=== PATIENT | female | born 1980 | race Caucasian/White ===

== ENCOUNTER 2019-06-24 17:10 | Emergency (ER) | payer OTHER ==
[~2019-06-24] VITALS: Ht 149.9 cm; Wt 63.0 kg
[2019-06-24] MEDS ORDERED: PEPCID AC20 MG (18:11)
== END 2019-06-24 19:30 | disposition home or self-care (01) ==
LOC: ER 17:10
DX: M54.2 Cervicalgia (principal)

== ENCOUNTER 2020-01-05 00:37 | Emergency (ER) | payer OTHER ==
[~2020-01-05] VITALS: Ht 154.9 cm; Wt 59.0 kg
[~2020-01-05 00:37] MED LIST: PEPCID AC20 MG
[2020-01-05] MEDS ORDERED: KEFLEX500 MG PO (07:46)
[2020-01-05] MEDS ORDERED: LEVSIN/SL0.125 MG SL ×2 (07:46→07:47)
== END 2020-01-05 07:54 | disposition home or self-care (01) ==
LOC: ER 00:37
DX: N39.0 Urinary tract infection, site not specified (principal); K80.20 Calculus of gallbladder without cholecystitis without obstruction; R10.13 Epigastric pain; R10.32 Left lower quadrant pain